=== PATIENT | female | born 1960 | race Caucasian/White ===

== ENCOUNTER 2016-10-22 13:17 | Observation (INO) | payer OTHER ==
[2016-10-22 13:37] LABS: Urine Bilirubin Negative (NEGATIVE); Urine Blood 250 /ul (NEGATIVE); Urine Ketone Negative (NEGATIVE); Urine Nitrite Negative (NEGATIVE); Urine Protein Negative (NEGATIVE); Urine Specific Gravity >=1.030 SP.GR. (1.005-1.010); Urine Urobilinogen Normal (NORMAL); Urine pH 5.5 pH (5.0-7.0)
[2016-10-22] MEDS ORDERED: ONDANSETRON HCL/PF 2 MG/ML VIAL ONE (13:38)
[2016-10-22] MEDS ORDERED: KETOROLAC TROMETHAMINE 30 MG/ML VIAL ONE (13:39)
[2016-10-22] MEDS ORDERED: NORMAL SALINE 1,000 ML IV ONE (13:40)
[2016-10-22] MEDS ORDERED: ONDANSETRON HCL/PF 2 MG/ML VIAL IV ONE (13:40)
[2016-10-22] MEDS ORDERED: KETOROLAC TROMETHAMINE 30 MG/ML VIAL IV ONE (13:40)
--- OUTSIDE RECORDS SUMMARY | 2016-10-22 13:45 | XMS REPORT | Continuity of Care Document ---
:1960 Author Organization [facility] ([facility]) Address [address] [place] [address] Phone [phone] Care Team Providers Name Role Phone Jase Phillips Primary Care Provider [phone] Source Comments This disclosure is being made pursuant to the Care Everywhere program, applicable federal and state laws, and may not contain all informaitonavailable regarding this patient.[facility] ([facility]) Active Allergies and Adverse Reactions No Known Allergies Current Medications Prescription Sig. Disp. Refills Start Date End Date Status gabapentin 300 mg Take 300 mg by mouth 08/16/2016 Active capsule 3 times daily. lisinopril-hydrochlor Take 1 tablet by 08/14/2016 Active othiazide 20-25 mg mouth daily. per tablet potassium citrate 10 Take 10 mEq by mouth 08/14/2016 Active mEq XR tablet daily. metFORMIN 1,000 mg Take 1,000 mg by 06/16/2016 Active tablet mouth 2 times daily. allopurinol 100 mg Take 100 mg by mouth 06/07/2016 Active tablet daily. multivitamin Take 1 tablet by Active (MULTIPLE VITAMINS) mouth daily. tablet cholecalciferol Take by mouth daily. Active (VITAMIN D3) PO insulin lispro Inject Active (HumaLOG) 100 unit/mL subcutaneously 3 injection vial times daily before meals. insulin glargine Inject Active (LanTUS) 100 unit/mL subcutaneously at injection vial bedtime. oxyCODONE-acetaminoph Take 1-2 tablets by 30 tablet 0 09/24/2016 Active en 5-325 mg per mouth every 4 hours tablet as needed for Pain. Do NOT exceed 4000 mg of acetaminophen per 24 hours. ondansetron 4 mg 09/26/2016 Active disintegrating tablet letrozole 2.5 mg Take 1 tablet (2.5 90 tablet 3 10/12/2016 Active tablet mg total) by mouth daily. Active Problems Problem Noted Date Morbid obesity 09/24/2016 Breast cancer of upper-inner quadrant of right female breast 08/20/2016 Overview: Er/Pr+, her 2- Most Recent Encounters Date Type Specialty Providers Description 10/12/2016 Hospital Encounter Radiation Oncology Karel Hatch MD Dx: Breast cancer of upper-inner quadrant of right female breast (Primary Dx) 10/12/2016 Office Visit [facility], Chief Comp: Patient MD Jennie Reported Reason For Visit 10/12/2016 Office Visit Med Hematology and Theodore Cantu, Dx: Invasive ductal Oncology carcinoma of right breast in female 10/12/2016 Office Visit [facility], Dx: Breast cancer of MD Jennie upper-inner quadrant of right female breast (Primary Dx) 10/06/2016 Office Visit Med Hematology and Theodore Cantu, Chief Comp: Patient Oncology Reported Reason For Visit 10/06/2016 Office Visit Srg Oncology Edgar, Chief Comp: Patient MD Jennie Reported Reason For Visit 10/02/2016 Orders/Notes Cancer Center Jennie Hernández MD 09/26/2016 Telephone Srg Oncology Arthur Blackwood, Chief Comp: Advice Only 09/25/2016 Nurse Triage Ambulatory Surgery Mayte Brush, Chief Comp: Post-op RN Follow-up Call 09/24/2016 Hospital Encounter Radiology Edgar, Dx: Ivone Schneider MD ductal carcinoma of right female breast 09/24/2016 Hospital Encounter Ambulatory Surgery Edgar, Dx: Ivone Schneider MD ductal carcinoma of right female breast (Primary Dx) 09/24/2016 Pharmacy Visit 09/24/2016 Surgery Ambulatory Surgery Edgar, LUMPECTOMY W WIRE MD Jennie LOCALIZATION W SENTINEL NODE BIOPSY/POSS AXILLARY NODE DISSECTION AND INTRAOP RADIATION 09/23/2016 Hospital Encounter Radiology Elise Mckeon, Dx: Ivone BAEZ ductal carcinoma of right female breast 09/22/2016 Anesthesia Event Ambulatory Surgery Vega Cole MD 09/21/2016 Office Visit [facility], Dx: Ivone Schneider MD ductal carcinoma of right female breast (Primary Dx) 09/03/2016 Hospital Encounter Radiation Oncology Karel Hatch MD Dx: Infiltrating ductal carcinoma of right female breast (Primary Dx) 08/28/2016 Orders/Notes Cancer Center Jennie Hernández MD 08/27/2016 Telephone Cancer Center Lj Ferrell RN Dx: Invasive ductal carcinoma of right breast in female (Primary Dx) 08/25/2016 Office Visit Srg Oncology Elaine Shy M, 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) Jennie Hernández MD 08/25/2016 Telephone Cancer Center Lj Ferrell RN Chief Comp: Results 08/20/2016 Hospital Encounter Radiology Meño, Dx: Invasive ductal Rama Gee MD carcinoma of right breast 08/20/2016 Hospital Encounter Radiology Meño, Dx: Invasive ductal Rama Gee MD carcinoma of right breast 08/20/2016 Hospital Encounter Radiology Omkar Mckee Dx: Invasive kamryn Paniagua MD carcinoma of right breast 08/20/2016 Hospital Encounter Radiology Omkar Mckee Dx: 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 08/20/2016 Hospital Encounter Radiology Omkar Mckee Dx: 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 08/20/2016 Hospital Encounter Radiology Omkar Mckee Dx: 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 08/20/2016 Telephone Cancer Center Lj Ferrell RN Dx: Invasive ductal carcinoma of right breast (Primary Dx) 07/29/2016 Lab Requisition Pathology Lab Services, [facility] Social History Tobacco Use Types Packs/Day Years Used Date Never Smoker Smokeless Tobacco: Never Used Alcohol Use Drinks/Week oz/Week Comments No 0 Standard drinks or equivalent 0.0 rarely, 2x yearly Last Filed Vital Signs Vital Sign Reading Time Taken Blood Pressure 142/88 10/12/2016 3:31 PM CHILD CARE CENTRE MANAGER Pulse 111 10/12/2016 3:31 PM CHILD CARE CENTRE MANAGER Temperature 36.5 C (97.7 F) 10/12/2016 3:31 PM CHILD CARE CENTRE MANAGER Respiratory Rate 16 09/24/2016 4:00 PM CHILD CARE CENTRE MANAGER Height 1.657 m (5' 5.24") 10/12/2016 3:31 PM CHILD CARE CENTRE MANAGER Weight 113.8 kg (250 lb 14.1 oz) 10/12/2016 3:31 PM CHILD CARE CENTRE MANAGER Body Mass Index 41.45 10/12/2016 3:31 PM CHILD CARE CENTRE MANAGER Oxygen Saturation 94% 09/24/2016 4:00 PM CHILD CARE CENTRE MANAGER Plan of Care Date Type Specialty Providers Description 11/02/2016 Appointment Women's Health Jennie Hernández, Chief Comp: Patient MD Reported Reason For [address] [place] [address] [phone] (Fax) 01/11/2017 Appointment Radiation Oncology Lexus Griffin Chief Comp: Patient COMMERCIAL LOAN ANALYST Reported Reason For [address] [place] [address] [phone] (Fax) 01/11/2017 Appointment Med Hematology and Theodore Cantu MD Chief Comp: Patient Oncology [address] [place] [address] Visit [phone] (Fax) Health Maintenance Due Date Last Done Comments HCV Screening 1960 Hepatitis B Vaccine (1 of 3 - Primary Series) 1960 Tdap Vaccine 1971 Lipid Disorder Screening 1978 MMR Vaccine 1978 Td Vaccine 1978 Pneumococcal Vaccine (1 of 3 - PCV13) 1979 Cervical Cancer Screening 1990 Colonoscopy 2010 Influenza Vaccine: Seasonal (#1) 04/13/2016 Mammogram 09/24/2017 09/24/2016 Procedures from Last 3 Months Procedure Name Priority Date/Time Associated Diagnosis Comments ABSTRACTED BY BILLING Routine 09/24/2016 2:04 Infiltrating ductal Results for this STAFF PM CHILD CARE CENTRE MANAGER carcinoma of right procedure are in female breast the results section. LUMPECTOMY W WIRE 09/24/2016 10:37 Infiltrating ductal LOCALIZATION W AM CHILD CARE CENTRE MANAGER carcinoma of right SENTINEL NODE female breast BIOPSY/POSS AXILLARY NODE DISSECTION AND INTRAOP RADIATION Case Notes needle loc at 0900, can't start until 1030. sentinel node injection the day before. IORT with Dr. aHtch Results from Last 3 Months BLOOD GLUCOSE, BEDSIDE (09/24/2016 2:28 PM)Only the most recent of3 resultswithin the time period is included. Component Value Range Glucose, Accu-Chek 127(H) 65-99 mg/dL Specimen Blood, capillary SRG OR CASE (09/24/2016 2:04 PM) Narrative Jennie Hernández MD 09/24/20162:04 PM OR CASE: LUMPECTOMY W WIRE LOCALIZATION W SENTINEL NODE BIOPSY/POSS AXILLARY NODE DISSECTION AND INTRAOP RADIATION Post-Op Procedure Note - Surgical Oncology Date: 09/24/16 Service: Surgery-Adult/Plastics Location: ASC Preoperative Diagnosis: * Infiltrating ductal carcinoma of right female breast [C50.911] Operation/Procedure: LUMPECTOMY W WIRE LOCALIZATION W SENTINEL NODE BIOPSY/POSS AXILLARY NODE DISSECTION AND INTRAOP RADIATION (Right) Postoperative Diagnosis: * Infiltrating ductal carcinoma of right female breast [C50.911] Surgeon(s): * Jennie Hernández MD - Primary * Yue Sevilla MD - Fellow Findings: No unexpected findings Estimated Blood Loss: 20 ml Specimens: ID Type Source Tests Collected by Time Destination 1 : sentinel node #1, hot and blue, right breast Surgical Pathology Surgical Pathology Specimen SURGICAL PATHOLOGY EXAM Jennie Hernández MD 09/24/2016 1202 2 : right breast lumpectomy Surgical Pathology Surgical Pathology Specimen SURGICAL PATHOLOGY EXAM Jennie Hernández MD 09/24/2016 1243 3 : new cranial margin, new margin on card, right breast Surgical Pathology Surgical Pathology Specimen SURGICAL PATHOLOGY EXAM Jennie Hernández MD 09/24/2016 1247 4 : new medial margin, new margin toward card, right breast Surgical Pathology Surgical Pathology Specimen SURGICAL PATHOLOGY EXAM Jennie Hernández MD 09/24/2016 1248 5 : new caudal margin, new margin on card, right breast Surgical Pathology Surgical Pathology Specimen SURGICAL PATHOLOGY EXAM Jennie Hernández MD 09/24/2016 1248 6 : new lateral margin, new margin on card, right breast Surgical Pathology Surgical Pathology Specimen SURGICAL PATHOLOGY EXAM Jennie Hernández MD 09/24/2016 1249 Anesthesia:General Fluid Replacement: lactated ringers (LR) continuous infusion: 1000 ml Operative Report Completion: The patient was brought to the operating room and placed supine upon the operating table.Appropriate monitoring devices were affixed and general anesthesia was smoothly induced.The right breast and axilla were prepped and draped in the usual sterile fashion.An interdisciplinary time out was held to confirm patient identity, laterality, and nature of planned surgical procedure.Blue dye was injected prior to prepping. 3 cc of Lymphazurin blue dye was injected into the subareolar space and gently massaged, after skin prep with an antiseptic agent. Ultrasound was not used to confirm the location of the biopsy cavity. The sterile gamma probe was used to localize the region of greatest radioactivity and guide skin incision placement. The axillary fascia was entered. Using the both gamma probe and blue lymphatic, the first sentinel node was identified. It was excised with hemoclips and cautery.No additional sentinel lymph nodes were removed. The SLN appearance and counts were: #1 normal, ex vivo counts 16308 .The post-excision counts were 35. Palpation did not reveal any additional nodes. Hemostasis was achieved and the wound was irrigated and closed in 2 layers with interrupted 3-0 Vicryl and running 4-0 Monocryl. Attention was turned to the breast. The tumor was located in the UIQ.It was localized by needle locatization.An incision oriented along Romina's lines was made, not taking skin over the lesion.A margin of normal tissue was excised with the tumor centered in all directions.The resection was taken down to the chest wall.Additional margins were taken. 4 additional 0.5 cm margins were taken superiorly, inferiorly, medially and laterally to the lumpectomy cavity and oriented appropriately on a card. The additional margins were taken per routineThe specimen was oriented with Margin Map markers and submitted for specimen radiograph.Hemostasis was achieved with electrocautery, the cavity copiously irrigated with Normal Saline. Hemostasis was achieved with electrocautery, and attention was turned to intraoperative radiation. The cavity was estimated at 3.5cm using serial sizers and the appropriate tumor bed applicator selected and affixed to the Intrabeam Device in a sterile fashion. A #1 Prolene pursestring suture was placed circumferentially below the skin, and the tumor bed applicator placed with the cavity. The pursestring was tied down and the ultrasound used to confirm good tissue apposition. The distance to skin was as follows: medial 18.5mm, lateral 20.4mm, inferior 20.0mm, cephalad 12.6mm. A moistened 4x4 gauze was unfolded and placed between the skin at the incision and the tumor bed applicator. Lead hinojosa were placed around the incisions. Intraoperative radiation therapy was then administered under the supervision of the radiation oncologist. Medium clips were placed to theodore the cavity, and closed in layers with interrupted 3-0 Vicryl and running 4-0 Monocryl.The incisions were then infiltrated with 1/4% Marcaine. Steri-strips and fluffs were applied. The patient tolerated the procedure well and went to PACU in satisfactory condition. I was present and scrubbed for the entire procedure. SURGICAL PATHOLOGY EXAM (09/24/2016 12:02 PM)Only the most recent of2 resultswithin the time period is included. Component Value Range Case Report Surgical Pathology Case: [id number] Authorizing Provider:Jennie Hernández MDCollected: 09/24/2016 12:02 PM Ordering Location: [facility] Received:09/24/2016 01:09 PM Pathologist: Cyndee Junior Specimens: A) - Lymph Node, sentinel node #1, hot and blue, right breast B) - Breast, Specify, new cranial margin, new margin on card, right breast C) - Breast, Specify, new medial margin, new margin toward card, right breast D) - Breast, Specify, new caudal margin, new margin on card, right breast E) - Breast, Specify, new lateral margin, new margin on card, right breast F) - Breast, Specify, right breast lumpectomy Diagnosis A.Timpson lymph node #1, "hot and blue", resection: One lymph node, no carcinoma identified (0/1). B.New cranial margin, right breast, resection: Benign breast tissue with no specific pathologic change. C.New medial margin, right breast, resection: Benign breast tissue with no specific pathologic change. D.New caudal margin, right breast, resection: Benign breast tissue with no specific pathologic change. E.New lateral margin, right breast, resection: Benign breast tissue with no specific pathologic change. F.Breast, right, lumpectomy: Invasive ductal carcinoma, Zack-Isaac grade 2, 4.0 mm in greatest dimension. No lymphovascular or perineural invasion identified. Ductal carcinoma in situ, intermediate nuclear grade, cribriform pattern with single cell necrosis. All resection margins free of invasive or in situ carcinoma (invasive carcinoma is 4 mm from the closest purple-inked medial margin and DCIS is 2 mm from the closest green-inked inferior margin). Calcified blood vessels (Monckeberg's calcifications). See synoptic report. I have personally reviewed this case and edited the report as necessary. Gross Description A. Received fresh in a container labeled with [facility], hospital number, and "sentinel node #1, hot and blue, right breast" is a 2.9 x 2.4 x 1.3 cm unoriented segment of garcía-yellow, lobular f ibrofatty tissue.Lymph node search reveals a 2.3 cm in greatest dimension garcía-pink to red, grossly unremarkable possible node.Possible node is serially sectioned and entirely submitted in A1-A2. LRL/rls B. Received in formalin at 1310 in a container labeled with [facility] , [facility] number, and "new cranial margin, new margin on card, right breast" is a 1.8 x 1.3 x 0.7 cm garcía-yellow, lobular, oriented fibrofatty tissue fragment.New margin on card per the container. New margin blue, serially sectioned and entirely submitted in B1. LRL/rls C.Received in formalin at 1310 in a container labeled with [facility] , [facility] number, and "new medial margin, new margin on card, right breast" is a 1.6 x 1.5 x 0.6 cm garcía-yellow, lobular, or iented fibrofatty tissue fragment.New margin on card per the container. New margin blue, serially sectioned and entirely submitted in C1. LRL/rls D. Received in formalin at 1310 in a container labeled with [facility], [facility] number, and "new caudal margin, new margin on card, right breast" is a 1.8 x 1.5 x 1.0 cm garcía-yellow, lobular, orien arnoldo fibrofatty tissue fragment.New margin on card per the container. New margin blue, serially sectioned and entirely submitted in D1. LRL/rls E.Received in formalin at 1310 in a container labeled with [facility] , [facility] number, and "new lateral margin, new margin on card, right breast" is a 1.8 x 1.6 x 0.8 cm garcía-yellow, lobular, o riented fibrofatty tissue fragment.New margin on card per the container. New margin blue, serially sectioned and entirely submitted in E1. LRL/rls F.Received in formalin at 1530 in a container labeled with [facility] , [facility] number, and "right breast lumpectomy" is an oriented segment of garcía- yellow, lobular fibrofatty tissue grossly con sistent with right lumpectomy.Six silver medallions are sutured to six margins.A localization wire enters the specimen at the superficial aspect and terminates in the deep most tissue, caudal aspect.Lumpectomy is 14.70 grams with the following measurements: Superior-inferior=3.3 cm, medial-lateral=2.1 cm, superficial-deep=4.9 cm. Specimen inked as follows:Superior=blue, inferior=green, medial=purple, lateral=black, superficial=yellow, deep=orange. Specimen is serially sectioned from superficial to deep into ten slices. A white-garcía, firm, solid, irregularly bordered, well defined tumor is in slices 3 and 4.Measurements are as follows: Superior-inferior=0.6 cm, medial-lateral=0.5 cm, superficial-deep=0.6 cm. Margins are as follows:Superior=1.4 cm, inferior=0.6 cm, medial=0.4 cm, lateral=1.0 cm, superficial=1.3 cm, deep=2.8 cm. Grossly uninvolved cut surfaces are garcía-yellow, lobular, homogenous and glistening without additional abnormalities and with scant fibrous component. Glued Wood Tester sections submitted as follows: F1:Nearest superficial margin, perpendicularly sectioned F2:Nearest deep margin, perpendicularly sectioned to include tissue at localization wire termination F3:Slice 2 F4:Slice 3 F5:Slice 4 F6:Slice 5 Entire case off of formal at 4 AM on 09/25/2016. LRL/hank Microscopic Description A-F.Microscopic examination has been performed and supports the above diagnosis. SYNOPTIC INVASIVE CARCINOMA OF THE BREAST: Complete Excision (Less Than Total Mastectomy, Including Specimens Designated Biopsy, Lumpectomy, Quadrantectomy, and Partial Mastectomy With or Without Axillary Cont ents) and Mastectomy (Total, Modified Radical, Radical With or Without Axillary Contents)Radical, Radical With or Without Axillary Contents)( Breast Invasive - F) CLINICAL Clinical History:Other (specify): biopsy proven invasive ductal carcinoma Radiologic Finding:Mass or architectural distortion SPECIMEN Procedure:Excision with image-guided localization Lymph Node Sampling:Timpson lymph node(s) Specimen Laterality:Right TUMOR Primary Tumor Site: Invasive Carcinoma:Upper inner quadrant Specify Clock Position of Tumor Site:2 o'clock Presence of Invasive Carcinoma: Histologic Type:Invasive mammary carcinoma of no special type (ductal, not otherwise specified) Histologic Grade (Shawna Histologic Score): Glandular (Acinar) / Tubular Differentiation:Score 2 ( 10 to 75% of tumor area forming glandular / tubular structures) Nuclear Pleomorphism:Score 2 (Cells larger than normal with open vesicular nuclei, visible nucleoli, and moderate variability in both size and shape) Mitotic Rate:Score 2 (4-7 mitoses per mm2) Number of Mitoses per 10 High-Power Palumbo:4 Overall Grade:Grade 2 (scores of 6 or 7) Ductal Carcinoma In Situ (DCIS):DCIS is present Ductal Carcinoma In Situ (DCIS):Negative for extensive intraductal component (EIC) Architectural Patterns:Cribriform Nuclear Grade:Grade II (intermediate) Necrosis:Present, focal (small foci or single cell necrosis ) Tumor Size / Focality: Tumor Size: Size of Largest Invasive Carcinoma:Greatest dimension of largest focus of invasion > 1 mm Greatest Dimension (mm):4 mm Tumor Focality:Single focus of invasive carcinoma Skin:Skin is not present Skeletal Muscle:No skeletal muscle is present Lymph-Vascular Invasion:Not identified Dermal Lymph-Vascular Invasion:No skin present Microcalcifications:Other (specify): calcified blood vessels Treatment Effect: Response to Presurgical (Neoadjuvant) Therapy: No known presurgical therapy MARGINS Invasive Carcinoma:Margins uninvolved by invasive carcinoma Distance from Closest Margin:Distance (specify in mm): 4 Closest Uninvolved Margin:Medial Ductal Carcinoma In Situ (DCIS):Margins uninvolved by DCIS ( DCIS present in specimen) Distance of DCIS from Closest Margin (mm):Distance (specify in mm): 2 mm Closest Uninvolved Margin(s):Inferior LYMPH NODES Regional Lymph Nodes: Timpson Node Status:Timpson lymph node biopsy performed Number of Timpson Nodes Examined:Specify number: 1 Method of Evaluation of Timpson Lymph Node(s): Hematoxylin and eosin (H&E), one level Number of Lymph Node(s) Examined (sentinel and nonsentinel): Specify number: 1 Lymph Node Involvement:None identified STAGE (pTNM) TNM Descriptors:Not applicable Primary Tumor (Invasive Carcinoma) (pT):pT1a: Tumor > 1 mm but < =5 mm in greatest dimension Modifier:(sn): Only sentinel node(s) evaluated. If 6 or more nodes (sentinel or nonsentinel) are removed, this modifier should not be used. Category (pN):pN0: No regional lymph node metastasis identified histologically Distant Metastasis (pM):Not applicable - pM cannot be determined from the submitted specimen(s) Optimal tissue block for molecular The optimal tissue block for molecular studies on tumor is: F5 studies The optimal tissue block for molecular studies on non-tumor is: E1 Specimen Surgical Pathology - Lymph Node; Surgical Pathology - Breast, Specify BI US NEEDLE LOC OR CLIP PLACEMENT, 1ST LESION, WITH SPECIMEN (09/24/2016 11:07 AM) Narrative Procedure: BI US NEEDLE LOC OR CLIP PLACEMENT, 1ST LESION, WITH SPECIMEN, BI DIGITAL DIAGNOSTIC MAMMOGRAM UNI RIGHT Clinical Indication: right breast cancer, localize for excision in the ASC Operators: Attending: Dr. Hanna Resident:Dr. Oscar Hanna, performed the procedure. Dr. Moore, assist the procedure. Procedure:Timeout was performed. Then the patient was taken to the ultrasound suite and ultrasound guided needle/wire localization was performed of the right upper inner hypoechoic mass. The skin was prepped with Chloraprep and 6 cc of 1% lidocaine was injected for anesthesia. A 5.0 cm hook needle-wire localization device was inserted into the lesion. Confirmation of the localization was done sonographically. Post-procedure mammographic images: demonstrate the needle/wire assembly was deployed in satisfactory position.The wire was secured to the skin surface. The patient tolerated the procedure without difficulty and was transported to the surgical clinic in satisfactory condition. Final Assessment: Ultrasound-guided needle-wire localization of the right breast with placement of localizer device in satisfactory position, as discussed above. Specimen ultrasonography shows the targeted residual mass, biopsy clip and hook wire in the specimen. The residual mass and the biopsy clip are close to the caudal and medial margins. These findings were discussed with Dr. Hernández. BI DIGITAL DIAGNOSTIC MAMMOGRAM UNI RIGHT (09/24/2016 10:53 AM) Narrative Procedure: BI US NEEDLE LOC OR CLIP PLACEMENT, 1ST LESION, WITH SPECIMEN, BI DIGITAL DIAGNOSTIC MAMMOGRAM UNI RIGHT Clinical Indication: right breast cancer, localize for excision in the ASC Operators: Attending: Dr. Hanna Resident:Dr. Oscar Hanna, performed the procedure. Dr. Moore, assist the procedure. Procedure:Timeout was performed. Then the patient was taken to the ultrasound suite and ultrasound guided needle/wire localization was performed of the right upper inner hypoechoic mass. The skin was prepped with Chloraprep and 6 cc of 1% lidocaine was injected for anesthesia. A 5.0 cm hook needle-wire localization device was inserted into the lesion. Confirmation of the localization was done sonographically. Post-procedure mammographic images: demonstrate the needle/wire assembly was deployed in satisfactory position.The wire was secured to the skin surface. The patient tolerated the procedure without difficulty and was transported to the surgical clinic in satisfactory condition. Final Assessment: Ultrasound-guided needle-wire localization of the right breast with placement of localizer device in satisfactory position, as discussed above. Specimen ultrasonography shows the targeted residual mass, biopsy clip and hook wire in the specimen. The residual mass and the biopsy clip are close to the caudal and medial margins. These findings were discussed with Dr. Hernández. NUC LYMPHOSCINTIGRAPHY (SULFUR COLLOID) PLANAR ([id number]) (09/23/2016 3:20 PM) Impressions Impression: 2 sentinel lymph nodes in the right axilla with 2 additional secondary nodes or tracks. Narrative Procedure: NUC LYMPHOSCINTIGRAPHY (SULFUR COLLOID) PLANAR ([id number]) Indication: [place] node mapping for infiltrating ductal carcinoma of the right breast. Radiopharmaceutical and other administered agents: 1. Technetium-99m (Tc-99m) labelled filtered sulfur colloid 2.1 mCi injected intradermally at TIME hrs. 2. Lidocaine 1% 2 mL. Technique: Radiopharmaceutical was injected at 4 adjacent locations. Immediate dynamic imaging of right breast was performed for 30 min. Additional spot views of the chest were acquired in the anterior as well as the ipsilateral lateral and anterior oblique projections. Findings: 2 lymphatic drainage tracks are seen with discrete localization of radiotracer in the 2 sentinel lymph nodes in the right axilla. 2 additional fainter foci of uptake may represent secondary nodes or tracks. Procedure Note Rfoylan, Incoming Imaging Results - WedSep 23, 2016 5:54 PM CHILD CARE CENTRE MANAGER Procedure: NUC LYMPHOSCINTIGRAPHY (SULFUR COLLOID) PLANAR ([id number]) Indication: [place] node mapping for infiltrating ductal carcinoma of the right breast. Radiopharmaceutical and other administered agents: 1. Technetium-99m (Tc-99m) labelled filtered sulfur colloid 2.1 mCi injected intradermally at TIME hrs. 2. Lidocaine 1% 2 mL. Technique: Radiopharmaceutical was injected at 4 adjacent locations. Immediate dynamic imaging of right breast was performed for 30 min. Additional spot views of the chest were acquired in the anterior as well as the ipsilateral lateral and anterior oblique projections. Findings: 2 lymphatic drainage tracks are seen with discrete localization of radiotracer in the 2 sentinel lymph nodes in the right axilla. 2 additional fainter foci of uptake may represent secondary nodes or tracks. IMPRESSION Impression: 2 sentinel lymph nodes in the right axilla with 2 additional secondary nodes or tracks. HEMOGLOBIN A1C (08/25/2016 10:21 AM) Component Value Range Hemoglobin A1c 10.6(H)Comment: 4.8-6.0 % Glycemic Control Guidelines: Non-diabetic <6% Goal <7% Therapeutic Action >8% Estimated Average Glucose 258Comment: mg/dL The estimated average glucose (eAG) calculated from the HbA1c changed on 02/05.See Laboratory Bulletins in the Department of Pathology Laboratory Services Handbook for a full discussion.Not e that the new calculated glucose will now be lower.The A1c result is unchanged. Specimen Whole Blood BASIC METABOLIC PANEL W/ CALCIUM (CHEM 8) (08/25/2016 10:21 AM) Component Value Range Sodium 135 135-145 mEq/L Potassium 4.3 3.5-5.0 mEq/L Chloride 93(L) 95-107 mEq/L CO2 23 22-29 mEq/L Anion Gap 19(H) 8-18 mEq/L BUN 17 10-20 mg/dL Creatinine 0.8Comment: 0.5-1.0 mg/dL Creatinine switched to enzymatic method on 01/20/2011.GFR equation switched to IDMS-traceable MDRD equation on 01/20/2011. Calculated GFR values are not valid in clinical settings where serum creatinine is changing. Glucose 511(HH)Comment: 65-99 mg/dL The Expert Committee on the Diagnosis and Classification of Diabetes has defined impaired fasting glucose as greater than or equal to 100 mg/dL but less than 126 mg/dL.(Diabetes Care 28 (Suppl 1)S41,2005) Calcium 9.4 8.5-10.5 mg/dL Calculated GFR 74 >60 mL/min/1.73 m2 Specimen Blood EXTERNAL US - STORE ONLY (08/20/2016 6:18 PM)EXTERNAL BI - STORE ONLY (2015 3:08 PM)EXTERNAL BI-STORE& INTERPRET (08/20/2016 3:07 PM)Only the most recent of3 resultswithin the time period is included. Impressions Findings/Impression: 6 mm oval slightly high density mass with indistinct borders is noted in the far posterior upper right MLO view. It corresponds to the hypoechoic mass at 2:00 of left breast on external ultrasound. This lesion was biopsied by outside facility with pathology of invasive ductal carcinoma. Postbiopsy mammogram demonstrated the biopsy clip at the biopsy site in the posterior upper inner right breast. There is no suspicious mass, microcalcifications or area of architectural distortion in the left breast. Recommendation : Continued definitive therapy.Right axillary ultrasound wouldbe considered if clinical indicated. The findings and recommendations were discussed with Lj Ferrell on 08/25/2016. Final assessment: Biopsy proven malignancy BI-RADS 6 The lack of mammographic evidence of malignancy should not deter further work-up of a clinically significant palpable finding. Narrative Exam: Outside Mammogram Interpretation. Clinical Indication:right breast IDC, pt coming for surgical opinion. Please review and recommend f/u Procedure: Digital Bilateral CC and MLO views dated 07/27/2016, 07/07/2016 from [facility] were reviewed. Comparison : Digital mammogram dated 03/06/2014 from the same institute Parenchymal Radiodensity: Scattered fibroglandular tissue Procedure Note Froylan, Incoming Imaging Results - WedAug 26, 2016 1:36 PM CHILD CARE CENTRE MANAGER Exam: Outside Mammogram Interpretation. Clinical Indication: right breast IDC, pt coming for surgical opinion. Please review and recommend f/u Procedure: Digital Bilateral CC and MLO views dated 07/27/2016, 07/07/2016 from [facility] were reviewed. Comparison : Digital mammogram dated 03/06/2014 from the same institute Parenchymal Radiodensity: Scattered fibroglandular tissue IMPRESSION Findings/Impression: 6 mm oval slightly high density mass with indistinct borders is noted in the far posterior upper right MLO view. It corresponds to the hypoechoic mass at 2:00 of left breast on external ultrasound. This lesion was biopsied by outside facility with pathology of invasive ductal carcinoma. Postbiopsy mammogram demonstrated the biopsy clip at the biopsy site in the posterior upper inner right breast. There is no suspicious mass, microcalcifications or area of architectural distortion in the left breast. Recommendation : Continued definitive therapy. Right axillary ultrasound would be considered if clinical indicated. The findings and recommendations were discussed with Lj Ferrell on 08/25/2016. Final assessment: Biopsy proven malignancy BI-RADS 6 The lack of mammographic evidence of malignancy should not deter further work-up of a clinically significant palpable finding.
--- NOTE | 2016-10-22 13:46 | ERNOTE ---
ER Female HPI Date of Service: 10/22/16 Stated Complaint: KIDNEY STONE Presenting Symptoms: other - Flank pain Time Seen by Provider: 10/22/16 13:32 Source: patient, RN notes reviewed Exam Limitations: no limitations Immunizations: IMMUNIZATION HX Immunizations Up to Date Yes History of Influenza Vaccine Yes Hx Pneumococcal Vaccination No Allergies/Adverse Reactions: Allergies No Known Allergies Allergy (Verified 06/15/16 14:22) Home Medications: HOME MEDICATIONS Allopurinol [Zyloprim (Allopurinol)] 100 mg PO 06/15/16 [Last Taken Unknown] Gabapentin [Neurontin] 300 mg PO TID 06/15/16 [Last Taken Unknown] Insulin Glargine,Hum.rec.anlog [Lantus] 48 units SC HS 06/15/16 [Last Taken Unknown] metFORMIN HCL [Glucophage] 1,000 mg PO BIDWM 06/15/16 [Last Taken Unknown] Insulin Lispro [Humalog] 100 unit SQ 10/22/16 [Last Taken Unknown] Letrozole [Femara] 2.5 mg PO DAILY 10/22/16 [Last Taken Unknown] Lisinopril/Hydrochlorothiazide [Lisinopril-Hctz 20-12.5 mg Tab] 1 each PO [Last Taken Unknown] Multivitamin [One Daily Essential] 1 each PO 10/22/16 [Last Taken Unknown] Potassium Citrate [Urocit-K] 10 meq PO 10/22/16 [Last Taken Unknown] - History of Present Illness Narrative: 56 y/o female ambulatory to the ED with left flank pain that began 12 hours ago. The pain was initially severe but then improved for several hours. It has since become worse again despite taking ibuprofen. She has a history of renal calculi in the past. She reports mild nausea but no vomiting. She recently underwent a lumpectomy and radiation treatment for breast cancer. Date (Duration): 10/22/16 Time (Timing): 01:30 Quality: Present: severe Onset Location: Present: left flank Radiation: Present: none Activities at Onset: Present: sleep Prior Abdominal Problems: Present: similar symptoms Associated Symptoms: Present: nausea. Absent: fever/chills, vomiting, abdominal pain, dysuria, urinary frequency Review of Systems - Review of Systems Constitutional: Present: See HPI EYE: Present: no symptoms reported ENT: Present: no symptoms reported Respiratory: Absent: shortness of breath, cough Cardiology: Absent: chest pain, palpitations, syncope Gastrointestinal/Abdominal: Present: See HPI Genitourinary: Present: See HPI Musculoskeletal: Present: no symptoms reported Skin: Absent: rash, lesions Neurological: Absent: headache, dizziness/light-headedness Endocrine: Present: no symptoms reported Hematologic/Lymphatic: Present: no symptoms reported Psych: Present: no symptoms reported - Patient's Past Medical History Patient History - Medical: Diabetes Type 2 Insulin Dependent, Kidney stone Patient History - Cardiac/Respiratory: Hypertension Patient History - Cancer: Breast Patient History - Surgical Procedures: Cholecystectomy, , T & A Patient History - Other: None LMP (females 10-50): Menopausal - Social History Living Situations: home Psych History: No pertinent hx Smoking Status: Never smoker Alcohol Use: none Drug Use: none - Immunizations Immunizations Up to Date: Yes Hx Pneumococcal Vaccination: No History of Influenza Vaccine: Yes Physical Exam - Physical Exam General Appearance: Present: wd/wn, alert, mild distress Eye Exam: Normal inspection: bilateral Neck: Present: normal inspection, nontender, supple Respiratory: Present: no respiratory distress, normal breath sounds, no accessory muscle use, lungs clear Cardiovascular/Chest: Present: regular rate, rhythm, no murmur, normal peripheral pulses Gastrointestinal/Abdominal: Present: normal bowel sounds, nondistended, soft, no organomegaly, tenderness - LLQ Back Exam: Present: no vertebral tenderness, CVA tenderness (L). Absent: CVA tenderness (R) Extremity Exam: Present: normal inspection, no edema Neurological Exam: Present: alert, oriented, normal mood/affect, no motor/ sensory deficits Skin Exam: Present: normal color, warm/dry ED Progress - Results and Orders Patient's Lab Results:: I have reviewed the patient's lab results. - Vital Signs Patient's Vital Signs:: I have reviewed the patient's vital signs. Vital Signs: Vital Signs 10/22/16 13:27 Temperature 36.1 C L Pulse Rate 101 H Respiratory 18 Rate Blood Pressure 156/95 O2 Sat by Pulse 99 Oximetry - CT/Ultrasound CT/Ultrasound Narrative: [facility] PATIENT RADIOLOGY STUDY REPORT Patient Patient Name:NATALIO ALEXANDER Date: 1960 Sex: F Order Number: [id number] Unique Exam ID: [id number] Exam Requested: [id number] - CT Abdomen/Pelvis W/O Contrast Date Scheduled: Study Priority: Requesting Service: Requesting Physician: Margarita Gant Reason for Exam: Radiological Report : Exam Date: 10/22/2016 13:58 Ordering Physician: Margarita Gant HISTORY: Left-sided flank pain and hematuria. TECHNIQUE: Multiple noncontrast axial CT images of the abdomen and pelvis obtained from the top of the diaphragm to the level of the pubic symphysis according to our renal stone CT protocol. Coronal reconstructions were also submitted. COMPARISON: 10/16/2015 FINDINGS: CT Abdomen/Pelvis W/O Contrast ABDOMEN: The examination is overall limited by noncontrast CT technique. Potential parenchymal tumor or acute vascular process such as aortic dissection or thrombosis of a vascular structure would be difficult to exclude. Right kidney: No obvious mass. Patient has punctate faint calcifications in the upper pole calyces, probably measuring < 1 mm in size. No hydronephrosis. No perinephric stranding. No evidence for ureteral stone or dilation. Left kidney: No obvious mass. There is a 6.2 mm calcification at the level of the left ureteropelvic junction (series 3 image 67). Mild left-sided hydronephrosis noted. Mild perinephric stranding. No additional ureteral calcifications noted. Lung bases: There is stable appearance of scarring at the left lung base. Liver: Fatty liver infiltration and hepatomegaly suggested. No focal finding. Gallbladder: Unremarkable. Pancreas: Unremarkable. Spleen: Unremarkable. Adrenal glands: Unremarkable. Aorta: Mild atherosclerotic disease suggested. Diameter of the infrarenal segment at the inferior mesenteric artery origin is 1.5 cm. Retroperitoneum: Unremarkable. Stomach: Unremarkable. Small bowel: Unremarkable. Large bowel: Unremarkable.. Normal caliber appendix visualized (series 3 image 98-104). Abdominal wall: There is a small fat-containing umbilical hernia. No definable intraperitoneal free air noted. PELVIS: Bladder: No bladder calcifications or abnormal air. No free fluid or fluid collection. No pelvic mass or lymphadenopathy. Bones: Appears intact. Multilevel degenerative changes of the thoracolumbar spine noted. IMPRESSION: 1. 6.2 mm left ureteropelvic junction stone with mild left-sided hydronephrosis. 2. Multiple punctate submillimeter intrarenal calcifications of the right kidney. 3. Hepatomegaly and fatty infiltration of liver. Additional comments and limitations are as above. Electronically signed by Melida Sanchez M.D.. - Progress/Reassessment Chief Complaint: Genitourinary Problem Progress:: Improved Plan - Plan Plan: Patient had received Toradol and Morphine 4 mg total IVP with good relief but then began having moderate to severe pain again. Additional Morphine ordered. Patient routinely sees Dr. Cool - discussed CT results with him, plans to take patient to surgery at [address] Phillips contacted for observation admit. Departure Clinical Impression: Left ureteral calculus - Departure Disposition: [facility] Condition: Stable
[2016-10-22 13:53] LABS: Urine Appearance Clear; Urine Bacteria 1+; Urine Color Yellow; Urine WBC None Seen /hpf (0-5)
[2016-10-22] MEDS ORDERED: MORPHINE SULFATE 2 MG/ML DISP.SYRIN IV ONE ×3 (14:30→16:06)
[2016-10-22] MEDS ORDERED: MORPHINE SULFATE 2 MG/ML DISP.SYRIN ONE ×3 (14:32→16:09)
[2016-10-22 15:22] LABS: Hematocrit 36.9 % (37.0-47.0); Mean Cell Volume 80.6 fl (78-100); Mean Corpuscular Hemoglobin 26.2 pg (27-31); Mean Corpuscular Hgb Conc 32.5 g/dl (32-36); Neutrophil # 5.2 K/mm3 (1.3-6.0); Neutrophil % 56.4 % (42-75.0); Platelet Count 225 K/mm3 (150-450); Red Blood Count 4.58 M/mm3 (4.2-5.4); White Blood Count 9.3 K/mm3 (4.0-10.5)
[2016-10-22 15:31] LABS: Albumin * 3.1 gm/dl (3.4-5.0); Anion Gap 14.6 mmol/L (6.8-13.8); BUN/Creatinine Ratio 18.1 (9.0-21.6); Bilirubin, Total 0.2 mg/dL (0.0-1.1); Ca. Corrected For Albumin 9.3 mg/dL (8.4-10.2); Calcium * 8.9 mg/dL (7.9-10.9); Carbon Dioxide 25.9 mmol/L (24-32.6); Potassium 3.5 mmol/L (3.4-4.6); Total Protein 6.4 gm/dL (6.2-8.2)
--- OUTSIDE RECORDS SUMMARY | 2016-10-22 16:16 | XMS REPORT | Continuity of Care Document ---
:1960 Author Organization [facility] ([facility]) Address [address] [place] [address] Phone [phone] Care Team Providers Name Role Phone Jase Phillips Primary Care Provider [phone] Source Comments This disclosure is being made pursuant to the Care Everywhere program, applicable federal and state laws, and may not contain all informaitonavailable regarding this patient.[facility] ([facility]) Active Allergies and Adverse Reactions No [...] female breast (Primary Dx) 10/12/2016 Office Visit [facility], Chief Comp: Patient MD Jennie Reported Reason For Visit 10/12/2016 Office Visit Med Hematology and Theodore Cantu, Dx: Invasive ductal Oncology carcinoma of right breast in female 10/12/2016 Office Visit [facility], Dx: Breast cancer of MD Jennie upper-inner [...] Surgery Vega Cole MD 09/21/2016 Office Visit [facility], Dx: Ivone Schneider MD ductal carcinoma of [...] Oncology Elaine Shy M, Dx: Breast cancer DEVELOPMENT SPEC (Primary Dx) Jennie Hernández MD 08/25/2016 Telephone [...] Dx) 07/29/2016 Lab Requisition Pathology Lab Services, [facility] Social History Tobacco Use Types Packs/Day Years Used Date Never Smoker Smokeless Tobacco: Never Used Alcohol Use Drinks/Week oz/Week Comments No 0 Standard drinks or equivalent 0.0 rarely, 2x yearly Last Filed Vital Signs Vital Sign Reading Time Taken Blood Pressure 142/88 10/12/2016 3:31 PM FOREIGN EXCHANGE CLERK Pulse 111 10/12/2016 3:31 PM FOREIGN EXCHANGE CLERK Temperature 36.5 C (97.7 F) 10/12/2016 3:31 PM FOREIGN EXCHANGE CLERK Respiratory Rate 16 09/24/2016 4:00 PM FOREIGN EXCHANGE CLERK Height 1.657 m (5' 5.24") 10/12/2016 3:31 PM FOREIGN EXCHANGE CLERK Weight 113.8 kg (250 lb 14.1 oz) 10/12/2016 3:31 PM FOREIGN EXCHANGE CLERK Body Mass Index 41.45 10/12/2016 3:31 PM FOREIGN EXCHANGE CLERK Oxygen Saturation 94% 09/24/2016 4:00 PM FOREIGN EXCHANGE CLERK Plan of Care Date Type Specialty Providers Description 11/02/2016 Appointment Women's Health Jennie Hernández, Chief Comp: Patient MD Reported Reason For [address] [place] [address] [phone] (Fax) 01/11/2017 Appointment Radiation Oncology Lexus Griffin Chief Comp: Patient DEVELOPMENT SPEC Reported Reason For [address] [place] [address] [phone] (Fax) 01/11/2017 Appointment Med Hematology and Theodore Cantu MD Chief Comp: Patient Oncology [address] [place] [address] Visit [phone] (Fax) Health Maintenance Due Date Last Done [...] Infiltrating ductal Results for this STAFF PM FOREIGN EXCHANGE CLERK carcinoma of right procedure are in female breast the results section. LUMPECTOMY W WIRE 09/24/2016 10:37 Infiltrating ductal LOCALIZATION W AM FOREIGN EXCHANGE CLERK carcinoma of right SENTINEL NODE female breast BIOPSY/POSS AXILLARY NODE DISSECTION AND INTRAOP RADIATION Case Notes needle loc at 0900, can't start until 1030. sentinel node injection the day before. IORT with Dr. Hatch Results from Last 3 Months BLOOD GLUCOSE, [...] counts were: #1 normal, ex vivo counts [id number] .The post-excision counts were 35. Palpation did [...] Value Range Case Report Surgical Pathology Case: [id number] Authorizing Provider:Jennie Hernández MDCollected: 09/24/2016 12:02 PM Ordering Location: [facility] Received:09/24/2016 01:09 PM Pathologist: Cyndee Junior Specimens: [...] - Breast, Specify, right breast lumpectomy Diagnosis A.[place] lymph node #1, "hot and blue", resection: [...] at 1310 in a container labeled with [facility] , [facility] number, and "new cranial margin, new margin on card, right breast" is a 1.8 x 1.3 x 0.7 cm garcía-yellow, lobular, oriented fibrofatty tissue fragment.New margin on card per the container. New margin blue, serially sectioned and entirely submitted in B1. LRL/rls C.Received in formalin at 1310 in a container labeled with [facility] , [facility] number, and "new medial margin, new margin on card, right breast" is a 1.6 x 1.5 x 0.6 cm garcía-yellow, lobular, or iented fibrofatty tissue fragment.New margin on card per the container. New margin blue, serially sectioned and entirely submitted in C1. LRL/rls D. Received in formalin at 1310 in a container labeled with [facility], [facility] number, and "new caudal margin, new margin on card, right breast" is a 1.8 x 1.5 x 1.0 cm garcía-yellow, lobular, orien arnoldo fibrofatty tissue fragment.New margin on card per the container. New margin blue, serially sectioned and entirely submitted in D1. LRL/rls E.Received in formalin at 1310 in a container labeled with [facility] , [facility] number, and "new lateral margin, new margin on card, right breast" is a 1.8 x 1.6 x 0.8 cm garcía-yellow, lobular, o riented fibrofatty tissue fragment.New margin on card per the container. New margin blue, serially sectioned and entirely submitted in E1. LRL/rls F.Received in formalin at 1530 in a container labeled with [facility] , [facility] number, and "right breast lumpectomy" is an [...] additional abnormalities and with scant fibrous component. Card Services Specialist sections submitted as follows: F1:Nearest superficial margin, [...] SPECIMEN Procedure:Excision with image-guided localization Lymph Node Sampling:[place] lymph node(s) Specimen Laterality:Right TUMOR Primary Tumor [...] Uninvolved Margin(s):Inferior LYMPH NODES Regional Lymph Nodes: [place] Node Status:[place] lymph node biopsy performed Number of [place] Nodes Examined:Specify number: 1 Method of Evaluation of [place] Lymph Node(s): Hematoxylin and eosin (H&E), one [...] Dr. Hernández. NUC LYMPHOSCINTIGRAPHY (SULFUR COLLOID) PLANAR ([id number]) (09/23/2016 3:20 PM) Impressions Impression: 2 sentinel lymph nodes in the right axilla with 2 additional secondary nodes or tracks. Narrative Procedure: NUC LYMPHOSCINTIGRAPHY (SULFUR COLLOID) PLANAR ([id number]) Indication: [place] node mapping for infiltrating ductal carcinoma of [...] represent secondary nodes or tracks. Procedure Note Froylan, Incoming Imaging Results - WedSep 23, 2016 5:54 PM FOREIGN EXCHANGE CLERK Procedure: NUC LYMPHOSCINTIGRAPHY (SULFUR COLLOID) PLANAR ([id number]) Indication: [place] node mapping for infiltrating ductal carcinoma of [...] and MLO views dated 07/27/2016, 07/07/2016 from [facility] were reviewed. Comparison : Digital mammogram dated 03/06/2014 from the same institute Parenchymal Radiodensity: Scattered fibroglandular tissue Procedure Note Froylan, Incoming Imaging Results - WedAug 26, 2016 1:36 PM FOREIGN EXCHANGE CLERK Exam: Outside Mammogram Interpretation. Clinical Indication: right breast IDC, pt coming for surgical opinion. Please review and recommend f/u Procedure: Digital Bilateral CC and MLO views dated 07/27/2016, 07/07/2016 from [facility] were reviewed. Comparison : Digital mammogram dated [...]
--- NOTE | 2016-10-22 16:55 | HP ---
Chief Complaint - Chief Complaint Date of Service: 10/22/16 Time of Service: 16:36 Chief Complaint: left lower quadrant pain History of Present Illness: Radha Landon, is a 56-year-old white female, with previous medical history of diabetes mellitus type 2, hypertension, recent lumpectomy and radiation therapy for right breast cancer, who was admitted today on 10/22/2016 because of left lower quadrant pain. The patient woke up this morning with left lower quadrant pain, colicky, 8/10 ,on and off. She "toughed it up" and it got better. She went to work but the pain came back again and so she went to the emergency room in the emergency room. Her CBC, CMP were within normal limits but her CT scan of the abdomen and pelvis showed 6.2 mm stone on the left ureteropelvic junction with left mild hydronephrosis. She also has intrarenal calcification in the right kidney and fatty liver. She has had a history of his 6 lithotripsies in the past. She was then admitted for further evaluation and treatment. Dr. Cool has been consulted by ED and will do be doing a urological intervention in the morning. She denies F/C, CP, palpitations, coughing, dysuria. - Patient's Past Medical History Patient History - Medical: Diabetes Type 2 Insulin Dependent, Kidney stone Patient History - Cardiac/Respiratory: Hypertension Patient History - Cancer: Breast Patient History - Surgical Procedures: Cholecystectomy, , T & A Patient History - Other: None LMP (females 10-50): Menopausal - Family History Father Family History - Medical: , Other - peptic ulcer disease Family History - Cardiac/Respiratory: CVA/Stroke, Hypertension Mother Family History - Medical: Other - Scoliosis Family History - Cardiac/Respiratory: Hypertension - Social History Living Situations: home Psych History: No pertinent hx Smoking Status: Never smoker Alcohol Use: none Drug Use: none - Immunizations Immunizations Up to Date: Yes Hx Pneumococcal Vaccination: No History of Influenza Vaccine: Yes Review Of Systems (GEN) - Review of Systems Generalized/Overall Review: Absent: Chills, Fever EENTM: Present: No Symptoms Reported Respiratory: Absent: Cough, Shortness of Breath, Orthopnea Cardiac: Absent: Chest Pain, Edema, Palpitations Abdominal: Present: Nausea. Absent: Vomiting Genitourinary: Present: Other - LLQ pain/left flank pain. Absent: Urgency, Frequency Immunizations: IMMUNIZATION HX Immunizations Up to Date Yes History of Influenza Vaccine Yes Hx Pneumococcal Vaccination No Allergies/Adverse Reactions: Allergies Allergy/AdvReac Type Severity Reaction Status Date / Time No Known Allergies Allergy Verified 06/15/16 14:22 Home Medications: HOME MEDICATIONS Allopurinol [Zyloprim (Allopurinol)] 100 mg PO DAILY 06/15/16 [Last Taken Unknown] Gabapentin [Neurontin] 300 mg PO TID 06/15/16 [Last Taken Unknown] Insulin Glargine,Hum.rec.anlog [Lantus] 48 units SC HS 06/15/16 [Last Taken Unknown] metFORMIN HCL [Glucophage] 1,000 mg PO BIDWM 06/15/16 [Last Taken Unknown] Insulin Lispro [Humalog] 100 unit SQ AC 10/22/16 [Last Taken Unknown] Letrozole [Femara] 2.5 mg PO DAILY 10/22/16 [Last Taken Unknown] Lisinopril/Hydrochlorothiazide [Lisinopril-Hctz 20-12.5 mg Tab] 20 mg PO DAILY 10/22/16 [Last Taken Unknown] Multivitamin [One Daily Essential] 1 each PO DAILY 10/22/16 [Last Taken Unknown] Potassium Citrate [Urocit-K] 10 meq PO DAILY 10/22/16 [Last Taken Unknown] Vitamin D3 2,000 meq PO DAILY 10/22/16 [Last Taken Unknown] Exam - Exam Vital Signs: Vital Signs - Last Taken Temp 36.1 C L 10/22/16 13:27 Pulse 101 H 10/22/16 13:27 Resp 18 10/22/16 13:27 BP 156/95 10/22/16 13:27 Pulse Ox 99 10/22/16 13:27 Constitutional: Present: Oriented x3, Cooperative, Well developed ENT Exam: Present: hearing grossly normal Eye Exam: bilateral eye: normal inspection, PERRL, EOMI Neck: Present: supple Back Exam: Present: no CVA tenderness Breasts: Present: Exam deferred Respiratory: Present: normal breath sounds, No rales, No wheezing Cardiovascular/Chest: Present: regular rate, rhythm, no JVD, no murmur Abdomen: Present: Normal bowel sounds, soft, nontender, other - slightly tender LLQ Extremity: Present: no pedal edema, no calf tenderness Diagnostic Studies: Laboratory Results WBC 9.3 K/mm3 (4.0-10.5) 10/22/16 15:12 RBC 4.58 M/mm3 (4.2-5.4) 10/22/16 15:12 Hgb 12.0 gm/dL (12.5-16.0) L 10/22/16 15:12 Hct 36.9 % (37.0-47.0) L 10/22/16 15:12 MCV 80.6 fl (78-100) 10/22/16 15:12 MCH 26.2 pg (27-31) L 10/22/16 15:12 MCHC 32.5 g/dl (32-36) 10/22/16 15:12 RDW 13.0 % (11.5-14.0) 10/22/16 15:12 Plt Count 225 K/mm3 (150-450) 10/22/16 15:12 MPV 11.0 fl (6.0-9.5) H 10/22/16 15:12 Immature Gran % (Auto) 0.50 % (0.001-0.429) H 10/22/16 15:12 Immature Gran # (Auto) 0.05 K/mm3 (0.000-0.0310) H 10/22/16 15:12 Neutrophils % 56.4 % (42-75.0) 10/22/16 15:12 Lymphocytes % 31.6 % (20-51) 10/22/16 15:12 Monocytes % 6.5 % (0.0-9) 10/22/16 15:12 Eosinophils % 4.5 % (0.0-3.0) H 10/22/16 15:12 Basophils % 0.5 % (0.0-1.0) 10/22/16 15:12 Nucleated RBC % 0.0 k/mm3 (0-1) 10/22/16 15:12 Neutrophils # 5.2 K/mm3 (1.3-6.0) 10/22/16 15:12 Lymphocytes # 2.9 k/mm3 (1.5-3.5) 10/22/16 15:12 Monocytes # 0.6 k/mm3 (0.0-1.0) 10/22/16 15:12 Eosinophils # 0.4 k/mm3 (0.0-0.7) 10/22/16 15:12 Absolute Basophils 0.1 k/mm3 (0.0-0.1) 10/22/16 15:12 Sodium 142 mmol/L (132-142) 10/22/16 15:12 Plasma Sodium 143 mmol/L (130-142) H 10/22/16 15:12 Potassium 3.5 mmol/L (3.4-4.6) 10/22/16 15:12 Chloride 105 mmol/L (97-106) 10/22/16 15:12 Carbon Dioxide 25.9 mmol/L (24-32.6) 10/22/16 15:12 Anion Gap 14.6 mmol/L (6.8-13.8) H 10/22/16 15:12 BUN 15 mg/dL (3-23) D 10/22/16 15:12 Creatinine 0.83 mg/dL (0.4-1.4) 10/22/16 15:12 Est GFR (Non-Af Amer) 76 mL/min (60-130) 10/22/16 15:12 BUN/Creatinine Ratio 18.1 (9.0-21.6) 10/22/16 15:12 Random Glucose 160 mg/dL (70-110) H 10/22/16 15:12 Calcium 8.9 mg/dL (7.9-10.9) 10/22/16 15:12 Calcium Adj for Albumin 9.3 mg/dL (8.4-10.2) 10/22/16 15:12 Total Bilirubin 0.2 mg/dL (0.0-1.1) 10/22/16 15:12 AST 23 U/L (0-48) 10/22/16 15:12 ALT 44 U/L (19-67) 10/22/16 15:12 Alkaline Phosphatase 81 U/L (50-170) 10/22/16 15:12 Total Protein 6.4 gm/dL (6.2-8.2) 10/22/16 15:12 Albumin 3.1 gm/dl (3.4-5.0) L 10/22/16 15:12 Urine Color Yellow 10/22/16 13:33 Urine Appearance Clear 10/22/16 13:33 Urine pH 5.5 pH (5.0-7.0) 10/22/16 13:33 Ur Specific [place] >=1.030 SP.GR. (1.005-1.010) 10/22/16 13:33 Urine Protein Negative mg/dL (NEGATIVE) 10/22/16 13:33 Urine Glucose (UA) Negative mg/dL (NEGATIVE) 10/22/16 13:33 Urine Ketones Negative mg/dL (NEGATIVE) 10/22/16 13:33 Urine Blood 250 /ul (NEGATIVE) H 10/22/16 13:33 Urine Nitrate Negative (NEGATIVE) 10/22/16 13:33 Urine Bilirubin Negative mg/dl (NEGATIVE) 10/22/16 13:33 Urine Urobilinogen Normal EU/dl (NORMAL) 10/22/16 13:33 Ur Leukocyte Esterase Negative /ul (NEGATIVE) 10/22/16 13:33 Urine RBC 10-25 /hpf (0-5) H 10/22/16 13:33 Urine WBC None seen /hpf (0-5) 10/22/16 13:33 Ur Epithelial Cells 0-5 /hpf (0-5) 10/22/16 13:33 Urine Bacteria 1+ (NONE) H 10/22/16 13:33 Urine Culture Comments No culture indicated 10/22/16 13:33 Assessment/Plan - Assessment/Plan (1) Left ureteral calculus Assessment: for urological intervention in the morning Problem: Acute (2) Hydronephrosis Assessment: for urological intervention in the morning. 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
[2016-10-22] MEDS ORDERED: ONDANSETRON HCL/PF 2 MG/ML VIAL IV PRN (17:03)
[2016-10-22] MEDS: INSULIN LISPRO 100 UNITS/ML VIAL SC SCH (17:36)
[2016-10-22] MEDS: POTASSIUM CHLORIDE 10 MEQ in NORMAL SALINE 1,000 ML IV SCH (17:37)
[2016-10-22] MEDS: MORPHINE SULFATE 2 MG/ML DISP.SYRIN IV PRN ×2 (19:32→20:37)
[2016-10-22] MEDS: GABAPENTIN 300 MG CAPSULE PO SCH (20:43)
[2016-10-22] MEDS ORDERED: INSULIN GLARGINE,HUM.REC.ANLOG 100 UNITS/ML VIAL SC SCH ×2 (21:00)
[2016-10-22] MEDS ORDERED: diphenhydrAMINE HCL 50 MG/ML VIAL IV PRN (21:22)
[2016-10-22] MEDS ORDERED: MORPHINE SULFATE 50 MG CARTRIDGE IV PRN (21:22)
[2016-10-22] MEDS ORDERED: NALOXONE HCL 1 MG/1 ML SYRG IV PRN (21:22)
[2016-10-22] MEDS ORDERED: MORPHINE SULFATE 50 MG CARTRIDGE ONE (22:21)
[2016-10-23] MEDS: POTASSIUM CHLORIDE 10 MEQ in NORMAL SALINE 1,000 ML IV SCH (03:27)
[2016-10-23 06:22] LABS: Hematocrit 36.4 % (37.0-47.0); Hemoglobin 11.7 gm/dL (12.5-16.0); Mean Cell Volume 82.5 fl (78-100); Mean Corpuscular Hemoglobin 26.5 pg (27-31); Mean Corpuscular Hgb Conc 32.1 g/dl (32-36); Mean Platelet Volume 11.5 fl (6.0-9.5); Neutrophil # 7.1 K/mm3 (1.3-6.0); Neutrophil % 61.8 % (42-75.0); Platelet Count 209 K/mm3 (150-450); Red Blood Count 4.41 M/mm3 (4.2-5.4); Red Cell Distribution Width 12.9 % (11.5-14.0); White Blood Count 11.6 K/mm3 (4.0-10.5)
[2016-10-23 06:33] LABS: Anion Gap 12.8 mmol/L (6.8-13.8); BUN/Creatinine Ratio 17.2 (9.0-21.6); Calcium * 8.4 mg/dL (7.9-10.9); Carbon Dioxide 26.6 mmol/L (24-32.6); Estimated Creat Clear 57.1; Potassium 4.4 mmol/L (3.4-4.6)
[2016-10-23] MEDS: GABAPENTIN 300 MG CAPSULE PO SCH (07:11)
[2016-10-23] MEDS: INSULIN LISPRO 100 UNITS/ML VIAL SC SCH ×2 (07:15→11:57)
[2016-10-23] MEDS ORDERED: CIPROFLOXACIN LACTATE/D5W 400 MG/200 ML BAG IV ONE (08:15)
[2016-10-23] MEDS ORDERED: NORMAL SALINE 1,000 ML IV ONE (08:28)
[2016-10-23] MEDS ORDERED: POTASSIUM CHLORIDE 10 MEQ TABLET.SA PO SCH (09:00)
[2016-10-23] MEDS ORDERED: ALLOPURINOL 100 MG TABLET PO SCH (09:00)
[2016-10-23] MEDS ORDERED: NON-FORMULARY 1 DOSE DOSE (Letrozole [Femara] 2.5 MG) PO SCH (09:00)
[2016-10-23] MEDS ORDERED: HYDROCHLOROTHIAZIDE 12.5 MG CAPSULE PO SCH (09:00)
[2016-10-23] MEDS ORDERED: LISINOPRIL 20 MG TABLET PO SCH (09:00)
[2016-10-23] MEDS ORDERED: NON-FORMULARY 1 DOSE DOSE (Lisinopril/Hydrochlorothiazide [Lisinopril-Hctz 20-12.5 Mg Tab] PO SCH (09:00)
[2016-10-23 09:28] VITALS: BP 144/84
[2016-10-23] MEDS ORDERED: HYDROcodone/ACETAMINOPHEN 1 EACH TABLET PO PRN (11:27)
--- NOTE | 2016-10-23 12:40 | DS ---
(1) Left ureteral calculus Problem: Acute (2) Hydronephrosis Problem: Acute Qualifiers: Hydronephrosis type: with ureteropelvic junction obstruction Qualified Code (s): Q62.0 - Congenital hydronephrosis (3) Diabetes mellitus type 2 in obese Problem: Acute (4) Hypertension Problem: Chronic Qualifiers: Hypertension type: essential hypertension Qualified Code(s): I10 - Essential (primary) hypertension Description of Stay: Radha Landon, is a 56-year-old white female, with previous medical history of diabetes mellitus type 2, hypertension, recent lumpectomy and radiation therapy for right breast cancer, who was admitted today on 10/22/2016 because of left lower quadrant pain. The patient woke up the morning of sdmission with left lower quadrant pain, colicky, 8/10 ,on and off. She "toughed it up" and it got better. She went to work but the pain came back again and so she went to the emergency room in the emergency room. Her CBC, CMP were within normal limits but her CT scan of the abdomen and pelvis showed 6.2 mm stone on the left ureteropelvic junction with left mild hydronephrosis. She also has intrarenal calcification in the right kidney and fatty liver. She has had a history of his 6 lithotripsies in the past. She was then admitted for further evaluation and treatment. Dr. Cool . She denies F/C, CP, palpitations, coughing, dysuria. She underwent cystoscopy with left retrograde pyelogram, left ureterocsopy, laser lithotripsy. There was no stenting done . She is stable to be discharged today . Procedures Performed: none Discharge Disposition: Home self care Disposition: Home self-care Condition: Good Discharge Activity: Activity as tolerated Discharge Diet: Consistent carbs Referrals: Jase Phillips MD [Primary Care Provider] - Problem Oriented Discharge Instructions to Patient/Family: Kidney Stones, Easy- to-Read Additional Patient Instructions (free text): Follow up with PCP in 2 weeks. Increase oral fluids. May return to work on Wednesday. Prescriptions (Any new or edited meds): Acetaminophen [Extra Strength Non-Aspirin] 500 mg PO QID PRN #60 tablet PRN Reason: Pain/Fever HYDROcodone/ACETAMINOPHEN [[place] 5-325] 1 each PO Q4H PRN #30 tablet PRN Reason: Pain Complete Home Medications List: Complete Home Medication List: Allopurinol [Zyloprim] 100 mg PO DAILY 06/15/16 Gabapentin [Neurontin] 300 mg PO TID 06/15/16 Insulin Glargine,Hum.rec.anlog [Lantus] 48 units SC HS 06/15/16 metFORMIN HCL [Glucophage] 1,000 mg PO BIDWM 06/15/16 Insulin Lispro [Humalog] 10 - 30 unit SQ AC 10/22/16 Letrozole [Femara] 2.5 mg PO DAILY 10/22/16 Lisinopril/Hydrochlorothiazide [Lisinopril-Hctz 20-12.5 mg Tab] 20 mg PO DAILY 10/22/16 Multivitamin [One Daily Essential] 1 each PO DAILY 10/22/16 Potassium Citrate [Urocit-K] 10 meq PO DAILY 10/22/16 Vitamin D3 2,000 meq PO DAILY 10/22/16 Acetaminophen [Extra Strength Non-Aspirin] 500 mg PO QID PRN #60 tablet HYDROcodone/ACETAMINOPHEN [[place] 5-325] 1 each PO Q4H PRN #30 tablet 10/23/16
== END 2016-10-23 13:55 | disposition home or self-care (01) ==
LOC: ER 13:17 → MS 16:11
PROVIDERS: ADMIT Internal Medicine; ATTEND Internal Medicine
PROC: BT1FYZZ Fluoroscopy of Left Kidney, Ureter and Bladder using Other Contrast (ICD-10-PCS; 2016-10-23)
PROC: 0TF48ZZ Fragmentation in Left Kidney Pelvis, Via Natural or Artificial Opening Endoscopic (ICD-10-PCS; principal; 2016-10-23 08:00)
DX: N13.2 Hydronephrosis with renal and ureteral calculous obstruction (principal); E11.9 Type 2 diabetes mellitus without complications; I10 Essential (primary) hypertension; E66.9 Obesity, unspecified; Z79.4 Long term (current) use of insulin
CPT/HCPCS: 36415; 52353; 74176; 74420; 76000; 80048; 80053; 81001; 85025; 96374; 96375; 96376; 99284; G0378